=== PATIENT | female | born 1965 | race Caucasian/White ===

== ENCOUNTER → 2021-03-02 | Outpatient (REF) | payer OTHER ==
[2021-03-02 16:09] LABS: BASO # 0.1 10^3/uL (0.0-0.2); BASO % 0.7 % (0.0-1.0); EOS # 0.2 10^3/uL (0.0-0.5); EOS % 2.1 % (0.0-3.0); HEMATOCRIT 44.9 % (36.0-47.0); HEMOGLOBIN 14.2 g/dl (12.0-15.5); LYMPH # 2.2 10^3/uL (1.5-5.0); LYMPH % 28.7 % (24.0-44.0); MEAN CORPUSCULAR HEMOGLOBIN 27.8 pg (27.0-33.0); MEAN CORPUSCULAR HGB CONC 31.6 g/dl (32.0-36.5); MEAN CORPUSCULAR VOLUME 87.9 fl (80.0-96.0); MONO # 0.6 10^3/uL (0.0-0.8); MONO % 7.5 % (2.0-8.0); NEUTROPHILS # 4.6 10^3/uL (1.5-8.5); NEUTROPHILS % 60.6 % (36.0-66.0); PLATELET COUNT, AUTOMATED 268 10^3/uL (150-450); RED BLOOD COUNT 5.11 10^6/uL (4.00-5.40); WHITE BLOOD COUNT 7.6 10^3/uL (4.0-10.0)
[2021-03-02 16:19] LABS: HEMOGLOBIN A1c 5.6 %
[2021-03-02 16:30] LABS: ALBUMIN 3.7 GM/DL (3.2-5.2); ALT/SGPT 49 U/L (12-78); BILIRUBIN,TOTAL 0.4 MG/DL (0.2-1.0); BLOOD UREA NITROGEN 17 MG/DL (7-18); CALCIUM LEVEL 9.2 MG/DL (8.5-10.1); CARBON DIOXIDE LEVEL 30 MEQ/L (21-32); CHLORIDE LEVEL 107 MEQ/L (98-107); CHOLESTEROL LEVEL 227 MG/DL (<200); CHOLESTEROL RISK RATIO 4.127 (<5); CREATININE FOR GFR 0.91 MG/DL (0.55-1.30); FREE T4 0.94 NG/DL (0.76-1.46); GLOMERULAR FILTRATION RATE > 60.0 (>51); GLUCOSE, FASTING 90 MG/DL (70-100); HDL CHOLESTEROL 55 MG/DL (>40); LDL CHOLESTEROL 155 MG/DL (<100); NON-HDL-C 172 MG/DL; POTASSIUM SERUM 4.9 MEQ/L (3.5-5.1); SODIUM LEVEL 141 MEQ/L (136-145); TOTAL PROTEIN 7.5 GM/DL (6.4-8.2); TRIGLYCERIDES LEVEL 87 MG/DL (<150)
== END ==
LOC: M SFHCCLAY 11:36
PROVIDERS: ATTEND Nurse Practitioner Family
DX: E78.5 Hyperlipidemia, unspecified (principal); I09.89 Other specified rheumatic heart diseases; Z13.1 Encounter for screening for diabetes mellitus

== ENCOUNTER → 2021-03-29 | Outpatient (REF) | payer OTHER | LOC: M SFHCCLAY 08:55 | PROVIDERS: ATTEND Nurse Practitioner Family | DX: Z12.4 Encounter for screening for malignant neoplasm of cervix (principal) ==

== ENCOUNTER → 2022-06-16 | Outpatient (REF) | payer OTHER ==
[2022-06-16 11:44] LABS: ALBUMIN 3.6 G/DL (3.2-5.2); ALKALINE PHOSPHATASE 75 U/L (46-116); ALT/SGPT 18 U/L (7.0-40); AST/SGOT 15 U/L (<34); BILIRUBIN,TOTAL 0.5 MG/DL (0.3-1.2); BLOOD UREA NITROGEN 15 MG/DL (9-23); CALCIUM LEVEL 9.3 MG/DL (8.5-10.1); CARBON DIOXIDE LEVEL 30 MMOL/L (20-31); CHLORIDE LEVEL 108 MMOL/L (98-107); CHOLESTEROL LEVEL 214 MG/DL (<200); CHOLESTEROL RISK RATIO 4.33 (<5); CREATININE FOR GFR 0.91 MG/DL (0.55-1.30); GLOMERULAR FILTRATION RATE > 60.0 (>51); GLUCOSE, FASTING 90 MG/DL (60-100); HDL CHOLESTEROL 49.4 MG/DL (>40); LDL CHOLESTEROL 146.4 MG/DL (<100); NON-HDL-C 164.6 MG/DL; POTASSIUM SERUM 4.4 MMOL/L (3.5-5.1); SODIUM LEVEL 141 MMOL/L (136-145); TOTAL PROTEIN 6.7 G/DL (5.7-8.2); TRIGLYCERIDES LEVEL 91 MG/DL (<150)
[2022-06-16 11:45] LABS: THYROID STIMULATING HORMONE 2.025 uIU/ML (0.55-4.78)
[2022-06-16 11:46] LABS: FREE T4 0.99 NG/DL (0.89-1.76)
[2022-06-16 11:49] LABS: BASO % 0.6 % (0.0-1.0); EOS # 0.2 10^3/uL (0.0-0.5); HEMOGLOBIN 14.1 g/dl (12.0-15.5); LYMPH # 1.9 10^3/uL (1.5-5.0); LYMPH % 29.3 % (24.0-44.0); MEAN CORPUSCULAR HGB CONC 31.3 g/dl (32.0-36.5); MEAN CORPUSCULAR VOLUME 89.3 fl (80.0-96.0); MONO # 0.5 10^3/uL (0.0-0.8); MONO % 7.9 % (2.0-8.0); NEUTROPHILS # 3.8 10^3/uL (1.5-8.5); NEUTROPHILS % 58.7 % (36.0-66.0); PLATELET COUNT, AUTOMATED 277 10^3/uL (150-450); RED BLOOD COUNT 5.04 10^6/uL (4.00-5.40); WHITE BLOOD COUNT 6.4 10^3/uL (4.0-10.0)
[2022-06-16 11:56] LABS: HEMOGLOBIN A1c 5.5 % (4.0-6.0)
== END ==
LOC: M SFHCCLAY 08:19
PROVIDERS: ATTEND Nurse Practitioner Family
DX: E78.5 Hyperlipidemia, unspecified (principal); I09.89 Other specified rheumatic heart diseases; Z13.1 Encounter for screening for diabetes mellitus

== ENCOUNTER → 2022-11-03 | Outpatient (CLI) | payer OTHER | LOC: M CARPUL 10:09 | PROVIDERS: ATTEND Nurse Practitioner Family | DX: I09.89 Other specified rheumatic heart diseases (principal); I34.0 Nonrheumatic mitral (valve) insufficiency; I36.1 Nonrheumatic tricuspid (valve) insufficiency; R93.1 Abnormal findings on diagnostic imaging of heart and coronary circulation ==

== ENCOUNTER → 2023-06-19 | Outpatient (REF) | payer OTHER ==
[2023-06-19 13:05] LABS: BASO # 0.1 10^3/uL (0.0-0.2); BASO % 0.9 % (0.0-1.0); EOS # 0.2 10^3/uL (0.0-0.5); EOS % 2.3 % (0.0-3.0); HEMATOCRIT 46.9 % (36.0-47.0); HEMOGLOBIN 14.7 g/dl (12.0-15.5); LYMPH # 1.9 10^3/uL (1.5-5.0); LYMPH % 27.8 % (24.0-44.0); MEAN CORPUSCULAR HEMOGLOBIN 27.5 pg (27.0-33.0); MEAN CORPUSCULAR HGB CONC 31.3 g/dl (32.0-36.5); MEAN CORPUSCULAR VOLUME 87.8 fl (80.0-96.0); MONO # 0.6 10^3/uL (0.0-0.8); MONO % 8.1 % (2.0-8.0); NEUTROPHILS # 4.1 10^3/uL (1.5-8.5); NEUTROPHILS % 60.6 % (36.0-66.0); PLATELET COUNT, AUTOMATED 278 10^3/uL (150-450); RED BLOOD COUNT 5.34 10^6/uL (4.00-5.40); WHITE BLOOD COUNT 6.8 10^3/uL (4.0-10.0)
[2023-06-19 13:38] LABS: HEMOGLOBIN A1c 5.7 % (4.0-6.0)
[2023-06-19 13:39] LABS: ALBUMIN 3.9 G/DL (3.2-5.2); ALKALINE PHOSPHATASE 77 U/L (46-116); ALT/SGPT 26 U/L (7.0-40); AST/SGOT 22 U/L (<34); BILIRUBIN,TOTAL 0.6 MG/DL (0.3-1.2); BLOOD UREA NITROGEN 16 MG/DL (9-23); CALCIUM LEVEL 9.5 MG/DL (8.3-10.6); CARBON DIOXIDE LEVEL 30 MMOL/L (20-31); CHLORIDE LEVEL 105 MMOL/L (98-107); CHOLESTEROL LEVEL 211 MG/DL (<200); CHOLESTEROL RISK RATIO 3.84 (<5); GLOMERULAR FILTRATION RATE > 60.0 (>45); GLUCOSE, FASTING 99 MG/DL (74-106); HDL CHOLESTEROL 54.9 MG/DL (>40); LDL CHOLESTEROL 137.3 MG/DL (<100); NON-HDL-C 156.1 MG/DL; POTASSIUM SERUM 5.1 MMOL/L (3.5-5.1); SODIUM LEVEL 139 MMOL/L (136-145); TOTAL PROTEIN 7.2 G/DL (5.7-8.2); TRIGLYCERIDES LEVEL 94 MG/DL (<150)
[2023-06-19 13:41] LABS: THYROID STIMULATING HORMONE 2.375 uIU/ML (0.55-4.78)
[2023-06-19 13:42] LABS: FREE T4 1.09 NG/DL (0.89-1.76)
== END ==
LOC: M SFHCCLAY 08:17
PROVIDERS: ATTEND Nurse Practitioner Family
DX: Z00.00 Encounter for general adult medical examination without abnormal findings (principal); E78.5 Hyperlipidemia, unspecified; I09.89 Other specified rheumatic heart diseases; Z13.1 Encounter for screening for diabetes mellitus

== ENCOUNTER → 2023-12-29 | Outpatient (CLI) | payer OTHER | LOC: M CARPUL 14:49 | PROVIDERS: ATTEND Internal Medicine Medical Oncology | DX: C50.911 Malignant neoplasm of unspecified site of right female breast (principal) ==

== ENCOUNTER → 2024-01-04 | Outpatient (CLI) | payer OTHER | LOC: M RAD 14:48 | PROVIDERS: ATTEND Nurse Practitioner Family | DX: E04.2 Nontoxic multinodular goiter (principal) ==

== ENCOUNTER → 2024-01-17 | Outpatient (CLI) | payer OTHER ==
[~2024-01-17] MED LIST: LIDOCAINE 1% MDV 20ML VIAL As Ordered ONE; MIDAZOLAM INJ 2MG/2ML VIAL As Ordered ONE; NS 1,000 ML IV SCH; ceFAZolin 2 GM/D5W 50 ML IV BAG As Ordered ONE; fentaNYL 100 MCG/2 ML INJECTION As Ordered ONE
[2024-01-17 07:05] VITALS: TEMP 97.8
[2024-01-17] MEDS: ceFAZolin SOD 2 GM in IV 1 EA IV ONE (07:31)
[2024-01-17 09:00] VITALS: BP 153/88; O2SAT 97
== END ==
LOC: M IRPRO 06:59
PROVIDERS: ATTEND Internal Medicine Medical Oncology
DX: C50.911 Malignant neoplasm of unspecified site of right female breast (principal)
CPT/HCPCS: 36561; 99152; 99153; C1894; J0690; J1642; J2250; J3010

== ENCOUNTER 2024-01-23 16:37 | Emergency (ER) | payer OTHER ==
[~2024-01-23] VITALS: Ht 162.6 cm; Wt 86.2 kg
[~2024-01-23 16:37] MED LIST changes: +IBUP-1114; -LIDOCAINE 1% MDV 20ML VIAL As Ordered ONE; -MIDAZOLAM INJ 2MG/2ML VIAL As Ordered ONE; -NS 1,000 ML IV SCH; +OXYC-517; -ceFAZolin 2 GM/D5W 50 ML IV BAG As Ordered ONE; -fentaNYL 100 MCG/2 ML INJECTION As Ordered ONE
[2024-01-23 16:40] VITALS: TEMP 96.6
[2024-01-23] MEDS ORDERED: [UNRECOGNIZED DRUG - CODE] MC (17:01)
[2024-01-23] MEDS ORDERED: [UNRECOGNIZED DRUG - CODE] IV (17:01)
[2024-01-23] MEDS ORDERED: ISOVUE-370 76% 100ML VIAL As Ordered ONE (18:07)
[2024-01-23 18:50] VITALS: BP 143/81
[2024-01-23] MEDS: KETOROLAC 30 MG/ML 1ML VIAL IV ONE (19:34)
[2024-01-23] MEDS: METOCLOPRAMIDE INJ 10MG/2ML VIAL IV ONE (20:03)
[2024-01-23 21:15] VITALS: O2SAT 97
[2024-01-24] MEDS ORDERED: PROC10TA5 PO (09:55)
[2024-01-24] MEDS ORDERED: ONDA-284 PO (09:55)
== END 2024-01-23 21:19 | disposition home or self-care (01) ==
LOC: M ED 16:37
DX: R51.9 Headache, unspecified (principal); Z85.3 Personal history of malignant neoplasm of breast; Z88.1 Allergy status to other antibiotic agents; Z79.1 Long term (current) use of non-steroidal anti-inflammatories (NSAID); Z79.899 Other long term (current) drug therapy
CPT/HCPCS: 70450; 70496; 70498; 96374; 96375; 99284; J1885; J2765; Q9967

== ENCOUNTER 2024-03-14 13:44 | Outpatient (RCR) | payer OTHER ==
[~2024-03-14 13:44] MED LIST changes: +ONDA-284 PO; +PROC10TA5 PO; +[UNRECOGNIZED DRUG - CODE] IV; +[UNRECOGNIZED DRUG - CODE] MC
== END 2024-03-26 ==
LOC: M PT 13:44
PROVIDERS: ATTEND Specialist
DX: I89.0 Lymphedema, not elsewhere classified (principal)

== ENCOUNTER → 2024-05-01 | Outpatient (REF) | payer OTHER ==
[2024-05-01 15:49] LABS: C REACTIVE PROTEIN QUANTITATIV 0.64 MG/DL (<1.0)
[2024-05-01 15:50] LABS: ALBUMIN 3.4 G/DL (3.2-5.2); ALKALINE PHOSPHATASE 77 U/L (35-104); ALT/SGPT 40 U/L (7.0-40); AST/SGOT 22 U/L (<34); BILIRUBIN,TOTAL 0.5 MG/DL (0.3-1.2); BLOOD UREA NITROGEN 10 MG/DL (9-23); CALCIUM LEVEL 9.3 MG/DL (8.3-10.6); CARBON DIOXIDE LEVEL 27 MMOL/L (20-31); CHLORIDE LEVEL 104 MMOL/L (98-107); CHOLESTEROL LEVEL 244 MG/DL (<200); CHOLESTEROL RISK RATIO 5.66 (<5); CREATININE FOR GFR 0.65 MG/DL (0.55-1.30); GLOMERULAR FILTRATION RATE > 60.0 (>45); GLUCOSE, FASTING 96 MG/DL (74-106); HDL CHOLESTEROL 43.1 MG/DL (>40); LDL CHOLESTEROL 173.5 MG/DL (<100); MAGNESIUM LEVEL 1.8 MG/DL (1.8-2.4); NON-HDL-C 200.9 MG/DL; POTASSIUM SERUM 4.4 MMOL/L (3.5-5.1); SODIUM LEVEL 139 MMOL/L (136-145); TOTAL PROTEIN 6.5 G/DL (5.7-8.2); TRIGLYCERIDES LEVEL 137 MG/DL (<150)
== END ==
LOC: M LAB REF 14:46
PROVIDERS: ATTEND Internal Medicine Cardiovascular Disease
DX: Z92.21 Personal history of antineoplastic chemotherapy (principal); I51.7 Cardiomegaly; E78.2 Mixed hyperlipidemia; I50.9 Heart failure, unspecified; E78.6 Lipoprotein deficiency

== ENCOUNTER → 2024-07-04 | Outpatient (CLI) | payer OTHER ==
[~2024-07-04] MED LIST changes: +ANAS1TAB2 PO; +RIBO1TAB PO
== END ==
LOC: M EKG 16:23
PROVIDERS: ATTEND Specialist
DX: C50.919 Malignant neoplasm of unspecified site of unspecified female breast (principal); R94.31 Abnormal electrocardiogram [ECG] [EKG]

== ENCOUNTER → 2024-07-08 | Outpatient (REF) | payer OTHER ==
[2024-07-10 15:07] LABS: HPV APTIMA Not Detected (Not Detected)
== END ==
LOC: M SFHCCLAY 12:43
PROVIDERS: ATTEND Nurse Practitioner Family
DX: Z01.419 Encounter for gynecological examination (general) (routine) without abnormal findings (principal); N95.2 Postmenopausal atrophic vaginitis

== ENCOUNTER → 2024-08-08 | Outpatient (REF) | payer OTHER ==
[2024-08-08 13:29] LABS: CHOLESTEROL RISK RATIO 4.2 (<5); HDL CHOLESTEROL 56.1 MG/DL (>40); LDL CHOLESTEROL 151.9 MG/DL (<100); NON-HDL-C 179.9 MG/DL
[2024-08-08 13:32] LABS: FREE T4 0.96 NG/DL (0.89-1.76); THYROID STIMULATING HORMONE 1.385 uIU/ML (0.55-4.78)
[2024-08-08 14:37] LABS: HEMOGLOBIN A1c 5.3 % (4.0-6.0)
== END ==
LOC: M SFHCCLAY 07:49
PROVIDERS: ATTEND Nurse Practitioner Family
DX: Z00.00 Encounter for general adult medical examination without abnormal findings (principal); E78.5 Hyperlipidemia, unspecified; I09.89 Other specified rheumatic heart diseases; Z13.1 Encounter for screening for diabetes mellitus

== ENCOUNTER → 2024-10-07 | Outpatient (CLI) | payer OTHER ==
[~2024-10-07] MED LIST changes: +CALTTAB6 PO
== END ==
LOC: M WHC 12:52
PROVIDERS: ATTEND Specialist
DX: C50.411 Malignant neoplasm of upper-outer quadrant of right female breast (principal); Z79.811 Long term (current) use of aromatase inhibitors